=== PATIENT | female | born 1990 | race African-American/Black ===

== ENCOUNTER 2024-07-25 13:55 | Emergency (ER) | payer OTHER, SELFPAY ==
[2024-07-25] MEDS ORDERED: hydrOXYzine 25 MG TAB ONE (14:33)
[2024-07-25] MEDS ORDERED: Amlodipine 5 MG TAB ONE (15:21)
[2024-07-25 15:30] LABS: #Basophils 0.04 10x3/uL (0.0-0.2); #Eosinophils 0.14 10x3/uL (0.0-0.5); #Monocytes 0.43 10x3/uL (0.0-1.1); %Basophils 0.5 % (0.0-2.0); %Eosinophils 1.9 % (0.0-6.0); %Monocytes 5.9 % (0.0-10.0); %Neutrophils 60.4 % (40.0-75.0); ALT (SGPT) 13 U/L (8-55); AST (SGOT) 15 U/L (5-34); Albumin 4.6 g/dL (3.5-5.0); Alkaline Phosphatase 82 U/L (40-110); Anion Gap 16 mmol/L (10-20); BUN (Urea Nitrogen) 11 mg/dL (7.0-18.7); Bilirubin, Total 0.6 mg/dL (0.2-1.2); Calc. Creatinine Clearance 0 mL/min (70-130); Calcium 9.4 mg/dL (7.8-10.44); Carbon Dioxide 24 mmol/L (22-29); Chloride 101 mmol/L (98-107); Estimated GFR 76; Globulin 4.2 g/dL (2.4-3.5); Glucose 115 mg/dL (70-105); Hematocrit 39.5 % (34.9-44.5); Hemoglobin 12.9 g/dL (12.0-15.5); Mean Corpuscular HGB CONC 32.7 g/dL (32.0-36.0); Mean Corpuscular Hemoglobin 28.9 pg (27.0-33.0); Mean Corpuscular Volume 88.6 fL (81.6-98.3); Mean Platelet Volume 9.2 fL (7.4-10.4); Platelet Count 268 10x3/uL (150-450); Potassium 4.1 mmol/L (3.5-5.1); Protein, Total 8.8 g/dL (6.0-8.3); RBC Distribution Width 13.2 % (11.5-14.5); Red Blood Cell (RBC) Count 4.46 10x6/uL (3.90-5.03); Sodium 137 mmol/L (136-145); Troponin I Less than 0.010 ng/mL (< 0.028); White Blood Cell (WBC) Count 7.3 10x3/uL (3.5-10.5)
== END 2024-07-25 16:25 | disposition home or self-care (01) ==
LOC: CSHERS 13:55
DX: I10 Essential (primary) hypertension (principal); F17.210 Nicotine dependence, cigarettes, uncomplicated
CPT/HCPCS: 71045; 80053; 83880; 84484; 85025; 93005

== ENCOUNTER 2024-07-26 19:13 | Inpatient (IN) | payer SELFPAY ==
[2024-07-26] MEDS ORDERED: hydrALAZINE 20 MG/ML VIAL ONE ×2 (19:57→21:37)
[2024-07-26] MEDS ORDERED: Prochlorperazine 10 MG/2 ML VIAL ONE (19:58)
[2024-07-26] MEDS ORDERED: Acetaminophen 500 MG TAB ONE (19:58)
[2024-07-26] MEDS ORDERED: diphenhydrAMINE 50 MG/ML VIAL ONE (19:59)
[2024-07-26 20:22] LABS: BHCG - Serum Negative (NEGATIVE); Pregs Control Background? CLEAR/WHITE (CLR/WHITE); Pregs Control Bar Appear? YES (CONTROL BAR)
[2024-07-26 20:23] LABS: PTT 31.9 sec (22.0-33.0); Prothrombin Time 11.3 sec (9.5-12.1)
[2024-07-26 20:24] LABS: #Basophils 0.03 10x3/uL (0.0-0.2); #Eosinophils 0.19 10x3/uL (0.0-0.5); #Monocytes 0.49 10x3/uL (0.0-1.1); #Neutrophils 4.26 10x3/uL (1.5-8.4); %Basophils 0.4 % (0.0-2.0); %Eosinophils 2.4 % (0.0-6.0); %Lymphocytes 35.9 % (18.0-47.0); %Monocytes 6.3 % (0.0-10.0); %Neutrophils 54.7 % (40.0-75.0); Hematocrit 41.5 % (34.9-44.5); Hemoglobin 13.8 g/dL (12.0-15.5); Mean Corpuscular HGB CONC 33.3 g/dL (32.0-36.0); Mean Corpuscular Hemoglobin 28.9 pg (27.0-33.0); Mean Platelet Volume 9.1 fL (7.4-10.4); Platelet Count 270 10x3/uL (150-450); RBC Distribution Width 12.9 % (11.5-14.5); Red Blood Cell (RBC) Count 4.77 10x6/uL (3.90-5.03); White Blood Cell (WBC) Count 7.8 10x3/uL (3.5-10.5)
[2024-07-26 20:28] LABS: ALT (SGPT) 12 U/L (8-55); AST (SGOT) 14 U/L (5-34); Albumin 4.3 g/dL (3.5-5.0); Alkaline Phosphatase 78 U/L (40-110); Anion Gap 17 mmol/L (10-20); BUN (Urea Nitrogen) 10 mg/dL (7.0-18.7); Bilirubin, Total 0.7 mg/dL (0.2-1.2); Calc. Creatinine Clearance 0 mL/min (70-130); Calcium 9.7 mg/dL (7.8-10.44); Carbon Dioxide 22 mmol/L (22-29); Chloride 100 mmol/L (98-107); Estimated GFR 78; Globulin 4.6 g/dL (2.4-3.5); Glucose 135 mg/dL (70-105); Magnesium 2.1 mg/dL (1.6-2.6); Potassium 3.5 mmol/L (3.5-5.1); Protein, Total 8.9 g/dL (6.0-8.3); Sodium 135 mmol/L (136-145)
[2024-07-26 20:34] LABS: Troponin I Less than 0.010 ng/mL (< 0.028)
[2024-07-26] MEDS ORDERED: Ondansetron PF 4 MG/2 ML Vial ONE ×2 (21:09→22:12)
[2024-07-26 21:14] LABS: Bilirubin Neg (Negative); Blood, Urine 150 (Negative); Clarity Clear (Clear); Glucose, Urine (Dipstick) Normal (Negative); Ketone, Urine Negative (Negative); Leukocyte Negative (Negative); Nitrite Negative (Negative); Protein, Urine (Dipstick) Negative (Neg-Trace); Specific Gravity, Urine 1.005 (1.005-1.030); Urobilinogen Normal mg/dL (Less than 2)
[2024-07-26 21:24] LABS: Amphetamine Not Detected (NotDetected); Barbiturates Screen Not Detected (NotDetected); Benzodiazepine Screen Not Detected (NotDetected); Cocaine Metabolite Screen Not Detected (NotDetected); Methadone Not Detected (NotDetected); Methamphetamine Not Detected (NotDetected); Opiate Screen Not Detected (NotDetected); Oxycodone Screen Not Detected (NotDetected); Phencyclidine (PCP) Not Detected (NotDetected); THC/Cannabinoid Screen Detected (NotDetected); Tricyclic Screen Not Detected (NotDetected)
[2024-07-26 21:26] LABS: Bacteria/HPF Rare-Few HPF (None Seen); CAUTI Indications for Culture Pelvic or flank pain; Squamous Epithelial 0-3 HPF (0-3); WBC/HPF 0-3 HPF (0-3)
[2024-07-26 21:28] LABS: Urine Culture Reflex No No
[2024-07-26] MEDS ORDERED: Labetalol HCl 100 MG/20 ML VIAL ONE (22:13)
[2024-07-26] MEDS ORDERED: cloNIDine 0.1 MG TAB ONE ×2 (22:24→23:02)
[2024-07-26] MEDS ORDERED: Calcium Carbonate 500 MG ChewTAB PO PRN (23:06)
[2024-07-26] MEDS ORDERED: Senokot S 8.6-50 MG TAB PO PRN (23:06)
[2024-07-26] MEDS ORDERED: Ondansetron PF 4 MG/2 ML Vial IVP PRN (23:06)
[2024-07-26] MEDS ORDERED: Zolpidem Tartrate 5 MG TAB PO PRN (23:06)
[2024-07-26] MEDS ORDERED: Labetalol HCl 100 MG/20 ML VIAL SLOW IVP PRN (23:09)
[2024-07-27] MEDS: hydrOXYzine 25 MG TAB PO SCH (00:29)
[2024-07-27] MEDS: Potassium Chloride 20 MEQ TAB PO SCH (00:29)
[2024-07-27] MEDS: Spironolactone 25 MG TAB PO SCH ×2 (00:29→20:53)
[2024-07-27] MEDS: Promethazine HCl 12.5 MG in Sodium Chloride 0.9% 50 ML IVPB SCH (00:48)
[2024-07-27 04:35] LABS: Anion Gap 14 mmol/L (10-20); BUN (Urea Nitrogen) 11 mg/dL (7.0-18.7); Calc. Creatinine Clearance 178 mL/min (70-130); Calcium 9.5 mg/dL (7.8-10.44); Carbon Dioxide 21 mmol/L (22-29); Chloride 104 mmol/L (98-107); Estimated GFR 80; Glucose 135 mg/dL (70-105); Magnesium 2.2 mg/dL (1.6-2.6); Potassium 4.1 mmol/L (3.5-5.1); Sodium 135 mmol/L (136-145)
[2024-07-27 05:43] VITALS: BMI 53.6
[2024-07-27] MEDS ORDERED: Spironolactone 25 MG TAB PO SCH (08:00)
[2024-07-27] MEDS: Acetaminophen 325 MG TAB PO PRN (08:36)
[2024-07-27] MEDS: Amlodipine 10 MG TAB PO SCH (08:37)
[2024-07-27] MEDS: Losartan 50 MG TAB PO SCH ×2 (08:37→20:53)
[2024-07-27] MEDS: Atenolol 25 MG TAB PO SCH (08:37)
[2024-07-27] MEDS ORDERED: Perflutren Lipid Microspheres 1.1 MG/ML VIAL ONE (08:50)
[2024-07-27] MEDS ORDERED: Atenolol 25 MG TAB PO SCH (09:00)
[2024-07-27] MEDS ORDERED: Losartan 25 MG TAB PO SCH ×3 (09:00)
[2024-07-27] MEDS: Hydrochlorothiazide 25 MG TAB PO SCH (15:24)
[2024-07-27] MEDS: cloNIDine 0.1 MG TAB PO PRN (17:08)
[2024-07-27] MEDS: hydrOXYzine 10 MG TAB PO PRN (18:31)
[2024-07-27] MEDS: Enoxaparin 40 MG (0.4 mL) SYRINGE SC SCH (20:54)
[2024-07-28 04:42] LABS: Anion Gap 15 mmol/L (10-20); BUN (Urea Nitrogen) 17 mg/dL (7.0-18.7); Calc. Creatinine Clearance 128 mL/min (70-130); Calcium 9.9 mg/dL (7.8-10.44); Carbon Dioxide 24 mmol/L (22-29); Chloride 102 mmol/L (98-107); Estimated GFR 55; Glucose 106 mg/dL (70-105); Potassium 4.2 mmol/L (3.5-5.1); Sodium 137 mmol/L (136-145)
[2024-07-28] MEDS ORDERED: Hydrochlorothiazide 25 MG TAB PO SCH (09:00)
[2024-07-28] MEDS: Hydrochlorothiazide 25 MG TAB PO SCH (11:14)
[2024-07-28] MEDS: Labetalol HCl 100 MG TAB PO SCH (11:14)
[2024-07-28] MEDS: ALPRAZolam 0.5 MG TAB PO SCH (11:16)
[2024-07-28 16:30] VITALS: BP 163/95; TEMP 97.2
[2024-07-28] MEDS ORDERED: Labetalol HCl 100 MG TAB PO SCH (21:00)
== END 2024-07-28 15:45 | disposition home or self-care (01) | DRG 305 ==
LOC: CSHERS 19:13 → CSHTELE 22:52
PROVIDERS: ADMIT Student in an Organized Health Care Education/Training Program; ATTEND Internal Medicine
DX: I16.9 Hypertensive crisis, unspecified (principal); Z68.43 Body mass index [BMI] 50.0-59.9, adult; I10 Essential (primary) hypertension; Z98.51 Tubal ligation status; Z79.899 Other long term (current) drug therapy; Z79.1 Long term (current) use of non-steroidal anti-inflammatories (NSAID); F17.200 Nicotine dependence, unspecified, uncomplicated; E66.01 Morbid (severe) obesity due to excess calories; Z91.148 Patient's other noncompliance with medication regimen for other reason; Z71.6 Tobacco abuse counseling; Z71.51 Drug abuse counseling and surveillance of drug abuser; F12.10 Cannabis abuse, uncomplicated
CPT/HCPCS: 36415; 70450; 80048; 80053; 80306; 81001; 82088; 83735; 83880; 84244; 84443; 84484; 84703; 85025; 85610; 85730; 93005; 93306; 96374; 96375; 96376; J0360; J0780; J1200; J1650; J2405; J2550; Q9957